=== PATIENT | female | born 1985 | race African-American/Black ===

== ENCOUNTER 2021-10-11 20:47 | Emergency (ER) | payer SELFPAY | END 2021-10-12 00:25 | disposition home or self-care (01) | LOC: CSHERS 20:47 | DX: R05.9 Cough, unspecified (principal); I10 Essential (primary) hypertension; Z20.822 Contact with and (suspected) exposure to COVID-19; Z87.891 Personal history of nicotine dependence | CPT/HCPCS: 87804; 99283 ==

== ENCOUNTER 2023-11-05 03:52 | Emergency (ER) | payer BC, SELFPAY ==
[2023-11-05] MEDS ORDERED: Ibuprofen 200 MG TAB ONE (04:14)
[2023-11-05] MEDS ORDERED: Doxycycline 100 MG CAP PO SCH (04:30)
== END 2023-11-05 04:33 | disposition home or self-care (01) ==
LOC: CSHERS 03:52
DX: L02.214 Cutaneous abscess of groin (principal); I10 Essential (primary) hypertension; F17.290 Nicotine dependence, other tobacco product, uncomplicated
CPT/HCPCS: 99283

== ENCOUNTER 2023-12-08 19:06 | Emergency (ER) | payer SELFPAY | END 2023-12-08 20:09 | disposition home or self-care (01) | LOC: CSHERS 19:06 | DX: S60.221A Contusion of right hand, initial encounter (principal); I10 Essential (primary) hypertension; F17.290 Nicotine dependence, other tobacco product, uncomplicated; W18.30XA Fall on same level, unspecified, initial encounter ==